=== PATIENT | female | born 1970 | race Caucasian/White ===

== ENCOUNTER 2016-12-11 15:47 | Emergency (ER) | payer BC ==
[~2016-12-11] VITALS: Ht 154.9 cm; Wt 73.8 kg
[~2016-12-11 15:47] MED LIST: AMITRIPTYLINE100 M1 PO; ASPIRIN81 M2 PO; ATORVASTATIN CA10 MG PO; CILOXAN 0.1 APPLICAT LEFT EYE; CYMBALTA60 MG PO; ELMIRON100 MG PO; FLEXERIL10 MG PO; KLONOPIN0.5 M1 PO; MACROBID100 MG PO; MOBIC7.5 MG PO; NAPROSYN500 MG PO; NAPROXEN500 MG PO; PREDNISONE20 MG PO; PYRIDIUM200 MG PO; SEROQUEL12.5 MG PO; TOPAMAX100 MG PO; TRICOR48 MG PO; VICODIN 5-3001 EACH PO; ZOCOR40 MG PO
[2016-12-11 18:33] LABS: ADD MIUA? YES; BILIRUBIN NEGATIVE; BLOOD MODERATE; COLOR STRAW ((YELLOW)); GLUCOSE (STRIP) NEGATIVE; KETONES NEGATIVE; LEUKOCYTES MODERATE; NITRITE NEGATIVE; PROTEIN (STRIP) NEGATIVE; UROBILINOGEN 0.2 MG/DL (0.2-1.0)
[2016-12-11 18:39] LABS: BACTERIA RARE /HPF; EPITHELIAL CELLS RARE /HPF; MUCUS NONE SEEN /LPF; UCUL ADDED? NO; WHITE BLOOD CELLS 0-5 /HPF (0-5)
[2016-12-11 18:41] LABS: MCH 30.4 PG (29.0-34.0); MCHC 34.1 G/DL (30.0-36.0); MCV 89.4 FL (83-99); MEAN PLAT.VOLUME 9.4 uM^3 (9.5-12.4); PLATELET COUNT 267 K/uL (156-360); RBC DIS.WIDTH-CV 12.2 % (11.8-14.6); RED BLOOD COUNT 4.14 M/uL (3.80-5.20); WHITE BLOOD COUNT 14.9 K/uL (4.1-10.2)
[2016-12-11 18:51] LABS: CHLORIDE 100 mEq/L (99-109); POTASSIUM 4.2 mEq/L (3.7-5.4); SODIUM 135 mEq/L (136-147)
[2016-12-11 18:53] LABS: GLUCOSE 144 mg/dL (70-99)
[2016-12-11 18:55] LABS: ANION GAP 15 MEQ/L (2-14); TOTAL BILIRUBIN 0.4 mg/dL (0.0-1.0)
[2016-12-11 18:57] LABS: ALKALINE PHOSPHATASE 130 IU/L (3-129); GFR ESTIMATE (CALCULATED) > 59 mL/min/
[2016-12-11 18:58] LABS: UREA NITROGEN (BUN) 11 mg/dL (9-23)
[2016-12-11 19:00] LABS: LIPASE 113 U/L (1.0-51.0)
[2016-12-11] MEDS ORDERED: PERCOCET 5/31 TABLET PO (20:30)
[2016-12-11] MEDS ORDERED: ZOFRAN ODT4 MG PO (20:30)
[2016-12-11 22:10] VITALS: BP 128/79
== END 2016-12-11 22:51 | disposition home or self-care (01) ==
LOC: EME 15:47
PROVIDERS: Nurse Practitioner Family
DX: K85.90 Acute pancreatitis without necrosis or infection, unspecified (principal); K59.00 Constipation, unspecified; N20.0 Calculus of kidney; Z87.442 Personal history of urinary calculi; E78.5 Hyperlipidemia, unspecified; Z79.82 Long term (current) use of aspirin
CPT/HCPCS: 74177; 80053; 81003; 83690; 85027; 99281; 99284; J1885; J2405; J7030

== ENCOUNTER 2017-11-21 17:48 | Emergency (ER) | payer BC ==
[~2017-11-21] VITALS: Ht 157.5 cm; Wt 61.0 kg
[~2017-11-21 17:48] MED LIST changes: +PERCOCET 5/31 TABLET PO; +ZOFRAN ODT4 MG PO
[2017-11-21 18:15] LABS: HEMATOCRIT 36.8 % (36.0-46.0); MCH 33.3 PG (29.0-34.0); MCHC 35.3 G/DL (30.0-36.0); MCV 94.4 FL (83-99); PLATELET COUNT 266 K/uL (156-360); RBC DIS.WIDTH-CV 13.2 % (11.8-14.6); WHITE BLOOD COUNT 7.4 K/uL (4.1-10.2)
[2017-11-21 18:23] LABS: ALBUMIN 4.3 g/dL (3.2-4.8); CHLORIDE 108 mEq/L (99-109)
[2017-11-21 18:24] LABS: POTASSIUM 4.2 mEq/L (3.7-5.4); SODIUM 139 mEq/L (136-147)
[2017-11-21 18:28] LABS: TOTAL BILIRUBIN 0.3 mg/dL (0.0-1.0)
[2017-11-21 18:29] LABS: ALKALINE PHOSPHATASE 93 IU/L (3-129); CREATININE 0.8 mg/dL (0.6-1.3); GFR ESTIMATE (CALCULATED) > 59 mL/min/
[2017-11-21 18:31] LABS: AST (GOT) 19 IU/L (2-34); UREA NITROGEN (BUN) 11 mg/dL (9-23)
[2017-11-21 18:32] LABS: ALT (GPT) 29 IU/L (3-49)
[2017-11-21 18:33] LABS: LIPASE 29 U/L (1.0-51.0)
[2017-11-21 18:38] LABS: QUANTITATIVE HCG < 4.0 MIU/ML
[2017-11-21 18:41] LABS: GLUCOSE 117 mg/dL (70-99)
[2017-11-21 20:35] LABS: APPEARANCE CLOUDY ((CLEAR)); BILIRUBIN NEGATIVE; BLOOD SMALL; COLOR YELLOW ((YELLOW)); GLUCOSE (STRIP) NEGATIVE; KETONES NEGATIVE; LEUKOCYTES SMALL; NITRITE NEGATIVE; PROTEIN (STRIP) 100; SPECIFIC GRAVITY 1.013 (1.000-1.030); UROBILINOGEN 0.2 MG/DL (0.2-1.0)
[2017-11-21] MEDS ORDERED: ZOFRAN4 MG PO (20:53)
[2017-11-21] MEDS ORDERED: BENTYL20 MG PO (20:53)
[2017-11-21 21:00] VITALS: BP 139/86
[2017-11-21 21:22] LABS: RED BLOOD CELLS 0-5 /HPF (0-5)
[2017-11-21 21:23] LABS: EPITHELIAL CELLS 3+ /HPF; MUCUS TRACE /LPF
[2017-11-21 21:24] LABS: AMORPHOUS URATES CRYSTALS 1+; BACTERIA 2+ /HPF; UCUL ADDED? YES; WHITE BLOOD CELLS TNTC /HPF (0-5)
== END 2017-11-21 21:34 | disposition home or self-care (01) ==
LOC: EME 17:48
PROVIDERS: Nurse Practitioner Family
DX: R10.11 Right upper quadrant pain (principal); Z87.442 Personal history of urinary calculi; G43.909 Migraine, unspecified, not intractable, without status migrainosus; E78.5 Hyperlipidemia, unspecified; F32.9 Major depressive disorder, single episode, unspecified; Z98.51 Tubal ligation status; Z88.8 Allergy status to other drugs, medicaments and biological substances
CPT/HCPCS: 76705; 80053; 81003; 83690; 84702; 85027; 87077; 87086; 87186; 99281; 99284; J0500; J1885